=== PATIENT | male | born 2000 | race Asian ===

== ENCOUNTER 2023-03-26 11:06 | Emergency (ER) | payer OTHER, SELFPAY ==
[2023-03-26 12:10] VITALS: BP 135/83; PULSE 100; RESP 18; TEMP 36.9; O2SAT 100; BMI 21.4
--- NOTE | 2023-03-26 12:44 | ED_ITS ---
HPI - General Adult General Time Seen by Provider: 12:44 Date Seen: 03/26/23 Chief complaint: Sore Throat Stated complaint: sore throat Time Seen by Provider: 03/26/23 12:38 Source: patient and RN notes reviewed Mode of arrival: ambulatory Limitations: no limitations History of Present Illness HPI narrative: This 22-year-old male is coming in with complaint of sore throat, fevers, coughing. He has no chronic medical issues, specifically denies any cardiac or lung issues. Started 2 days ago with sore throat, the sore throat is the worst. He thinks he has been running fevers. He has not taken anything for his symptoms. Swallowing does hurt but he can swallow, does think he could swallow some ibuprofen if I gave it to him. No nausea or vomiting, no diarrhea. No known definite ill contacts. Related Data Previous Rx's Medication Instructions Recorded oseltamivir 75 mg capsule (Tamiflu) 75 mg PO BID 5 days #10 caps 03/26/23 Allergies Allergy/AdvReac Type Severity Reaction Status Date / Time No Known Drug Allergies Allergy Verified 03/26/23 12:15 Review of Systems Narrative: As per HPI. Exam Const: Vital Signs, click to edit/add: Vital Signs - 24 hr 03/26/23 12:10 Temperature 98.5 F Pulse Rate [Right Pulse Oximeter] 100 Respiratory Rate 18 Blood Pressure [Ri ght Upper Arm] 135/83 Pulse Oximetry 100 Oxygen Delivery Me thod Room Air 22-year-old male is very pleasant, alert , interactive, no apparent distress. No voice hoarseness, able to speak in complete sentences, speech is normal. Pupils are equal and round, conjugate gaze, sclera clear. Oropharynx has some slight tonsillar sidewall erythema without any exudates, no tonsillar enlargement, very good open posterior pharynx. Tongue, dental structures an oral mucosa looks normal. Uvula appears normal. Neck is supple, no cervical adenopathy, no thyromegaly masses or nodules. Lungs are clear, good air entry, no wheezing or crackles, no tachypnea. CV regular rate and rhythm, no murmur, normal S1-S2, no S3-S4. Documenting provider has reviewed patient's vital signs: yes Course Course ED Course: Will await the viral triple swab and the strep test that nursing staff appropriately collected in triage. He has not taken anything, does think he would be able to swallow. Will give him 400 mg ibuprofen for symptom relief. Reevaluation(s) Time of Reevaluation #1: 13:17 Reevaluation #1: We have reviewed that he has influenza A. Reviewed what influenza is and the symptoms it causes. He really would like medication. I have reviewed with him if there is any chance that he is out of the 48 hour time frame from onset of symptoms, the medicine isn't indicated as it is not going to help. He is very pleasant but definitely wants the medication. He is likely just on the borderline of 48 hours from what he is telling me. I will give him the prescription as he is requesting. We discussed Tylenol and ibuprofen for symptom control. We did review the natural course of the illness is usually 5-7 days, it is possible that the medicine may shorten this for him. Vital Signs Vital signs: Initial Vital Signs Temperature 98.5 F 03/26/23 12:10 Temperature Source Temporal Artery Scan 03/26/23 12:10 Pulse Rate 100 03/26/23 12:10 Respiratory Rate 18 03/26/23 12:10 Blood Pressure 135/83 03/26/23 12:10 Blood Pressure Mean 100 03/26/23 12:10 Blood Pressure Position Sitting 03/26/23 12:10 Pulse Oximetry 100 03/26/23 12:10 Oxygen Delivery Method Room Air 03/26/23 12:10 Vital Signs Temperature 98.5 F 03/26/23 12:10 Pulse Rate 100 03/26/23 12:10 Respiratory Rate 18 03/26/23 12:10 Blood Pressure 135/83 03/26/23 12:10 Pulse Oximetry 100 03/26/23 12:10 Oxygen Delivery Method Room Air 03/26/23 12:10 Temperature 98.5 F 03/26/23 12:10 Pulse Rate 100 03/26/23 12:10 Respiratory Rate 18 03/26/23 12:10 Blood Pressure 135/83 03/26/23 12:10 Pulse Oximetry 100 03/26/23 12:10 Oxygen Delivery Method Room Air 03/26/23 12:10 Medications Administered Medications: Discontinued Medications Generic Name Dose Route Start Last Admin Trade Name Freq PRN Reason Stop Dose Admin Ibuprofen 400 mg 03/26/23 12:53 03/26/23 13:09 Ibuprofen 200 Mg Tablet PO 03/26/23 12:54 400 mg ONCE ONE Administration Medical Decision Making Lab Data Lab results reviewed: Yes I reviewed the patient's lab results Labs: Lab Results 03/26/23 03/26/23 Range/Units 12:14 13:01 SARS-CoV-2 (PCR) Negative SARS-CoV-2 (Negative) Influenza Type A (PCR) POSITIVE PCR FLU A A (Negative) Influenza Type B (PCR) Negative PCR FLU B (Negative) RSV (PCR) Negative PCR RSV (Negative) Group A Strep DNA NOT DETECTED (Not Detectd) Critical Care Time Critical Care Time Critical Care Time: No Discharge Plan Discharge Clinical Impression: Influenza A Patient Disposition: Home, Self-Care Condition: Stable Instructions: Influenza (ED) Additional Instructions: Can take Tamiflu, it is possible that this may decrease the severity and duration for you. Need to start this as soon as possible today. You cannot wait to started until tomorrow, will not be effective for you at that point. For symptom control, can use Tylenol and or ibuprofen following bottle directions for dosing. Drink plenty of fluids, rest. You are likely infectious to others for up to 5-7 days from the onset of symptoms. Would recommend wearing a mask or isolating from people until you are feeling better. Activity Level: Activity as Tolerated Discharge Diet: Regular Prescriptions: New oseltamivir [Tamiflu] 75 mg capsule 75 mg PO BID 5 Days Qty: 10 0RF Follow Up/Referrals: Provider,Not a Local [Primary Care Provider] - Stand Alone Forms: [employer] Info Instructions
[2023-03-26 12:58] LABS: Strep A DNA Probe* NOT DETECTED (Not Detectd)
[2023-03-26 13:04] LABS: PCR FLU A POSITIVE PCR FLU A (Negative); PCR FLU B Negative PCR FLU B (Negative); PCR RSV Negative PCR RSV (Negative)
[2023-03-26 13:06] LABS: SARS PCR* Negative SARS-CoV-2 (Negative)
[2023-03-26] MEDS: IBUPROFEN 200 MG TABLET 400 MG PO (13:09)
[2023-03-26 13:39] VITALS: BP 135/83; PULSE 100; RESP 18; TEMP 36.9; O2SAT 100
[2023-03-26 13:40] VITALS: BP 130/82; PULSE 94; RESP 18; TEMP 36.9; O2SAT 99
[2023-03-26 13:41] VITALS: BP 130/82; PULSE 94; RESP 18; TEMP 36.9
== END 2023-03-26 13:42 | disposition home or self-care (01) ==
PROVIDERS: Emergency Provider Family Medicine
DX: J09.X2 Influenza due to identified novel influenza A virus with other respiratory manifestations (principal)
CPT/HCPCS: 87631; 87651; 99283; A9270